=== PATIENT | female | born 1985 | race Caucasian/White ===

== ENCOUNTER 2023-08-17 20:24 | Outpatient (REF) | payer BC, SELFPAY | END 2023-08-17 20:25 | disposition home or self-care (01) | LOC: LBN 20:24 | PROVIDERS: Visit Provider Nurse Practitioner Family | DX: N30.01 Acute cystitis with hematuria (principal) | CPT/HCPCS: 87086 ==

== ENCOUNTER 2023-08-20 15:11 | Outpatient (REF) | payer BC, SELFPAY | END 2023-08-20 15:12 | disposition home or self-care (01) | LOC: LBN 15:11 | PROVIDERS: Visit Provider Nurse Practitioner Family | DX: N30.01 Acute cystitis with hematuria (principal) | CPT/HCPCS: 87086 ==

== ENCOUNTER 2023-08-26 12:51 | Outpatient (REF) | payer BC, SELFPAY | END 2023-08-26 12:52 | disposition home or self-care (01) | LOC: NCHCN 12:51 | PROVIDERS: Referring Provider Physician Assistant; Visit Provider Physician Assistant | DX: R39.9 Unspecified symptoms and signs involving the genitourinary system (principal); R82.89 Other abnormal findings on cytological and histological examination of urine | CPT/HCPCS: 87086 ==

== ENCOUNTER 2023-09-02 15:30 | Outpatient (REF) | payer BC, SELFPAY | END 2023-09-02 15:31 | disposition home or self-care (01) | LOC: NCHCN 15:30 | PROVIDERS: Visit Provider Physician Assistant | DX: R39.89 Other symptoms and signs involving the genitourinary system (principal) | CPT/HCPCS: 87086 ==

== ENCOUNTER 2024-04-06 12:33 | Outpatient (REF) | payer BC, SELFPAY ==
[2024-04-06 15:38] LABS: HGB 13.4 g/dL (11.2-15.7); MCH 30.7 pg (27.0-33.0); MCHC 33.5 % (32.0-36.0); MCV 92 fL (80-95); MPV 10.3 fL (8.0-11.0); Platelet Count 376 10^3/uL (130-400); RBC 4.36 10^6/uL (3.93-5.22); RDW 12.5 % (11.7-14.6); RDW-SD 41.8 fL; WBC 6.99 10^3/uL (4.4-10.8)
[2024-04-06 17:17] LABS: TSH (W/Ref FT4) 1.38 uIU/mL (0.36-3.74)
== END 2024-04-06 12:34 | disposition home or self-care (01) ==
LOC: NCHCN 12:33
PROVIDERS: Visit Provider Internal Medicine
DX: R53.83 Other fatigue (principal)
CPT/HCPCS: 85027; 84443

== ENCOUNTER 2024-05-31 14:55 | Outpatient (REF) | payer BC, SELFPAY ==
[2024-05-31 21:34] LABS: Vitamin D 25 Total 31.5 ng/mL (30-100)
== END 2024-05-31 14:56 | disposition home or self-care (01) ==
LOC: NCHCN 14:55
PROVIDERS: Visit Provider Family Medicine
DX: E55.9 Vitamin D deficiency, unspecified (principal)
CPT/HCPCS: 82306